=== PATIENT | male | born 1980 | race Caucasian/White ===

== ENCOUNTER 2018-10-30 00:27 | Emergency (ER) | payer OTHER ==
[2018-10-30] MEDS ORDERED: Lidocaine 1% w/Epinephrine 1:100K 20 ML VIAL ONE (00:40)
[2018-10-30] MEDS ORDERED: Ondansetron ODT 4 MG TAB ONE (00:46)
[2018-10-30 01:26] LABS: #Eosinphils 0.2 thou/uL (0.0-0.7); #Monocytes 0.4 thou/uL (0.11-0.59); #Neutrophils 5.1 thou/uL (1.40-6.50); %Basophils 0.4 % (0.0-1.0); %Eosinophils 2.1 % (0.0-10.0); %Lymphocytes 26.2 % (21.0-51.0); %Neutrophils 66.4 % (42.0-75.0); Mean Corpuscular HGB CONC 34.5 g/dL (32.0-36.0); Mean Corpuscular Hemoglobin 32.2 pg (27.0-31.0); Mean Corpuscular Volume 93.5 fL (78.0-98.0); Mean Platelet Volume 6.3 fL (7.4-10.4); Platelet Count 346 thou/uL (130-400); RBC Distribution Width 10.9 % (11.5-14.5); Red Blood Cell (RBC) Count 5.27 mill/uL (4.70-6.10); White Blood Cell (WBC) Count 7.6 thou/uL (4.8-10.8)
[2018-10-30 01:41] LABS: Prothrombin Time 13.4 SEC (12.0-14.7)
[2018-10-30 01:42] LABS: PTT 22.6 SEC (22.9-36.1)
[2018-10-30 01:48] LABS: Acetaminophen Less than 6.0 mcg/mL (10.0-30.0); Alcohol Less than 10 mg/dL (Less than 10); Salicylate Less than 8.0 mg/dL (15.0-30.0)
[2018-10-30 01:57] LABS: ALT (SGPT) 17 U/L (8-55); AST (SGOT) 23 U/L (5-34); Albumin 4.2 g/dL (3.5-5.0); Alkaline Phosphatase 66 U/L (40-150); Anion Gap 18 mmol/L (10-20); BUN (Urea Nitrogen) 12 mg/dL (8.9-20.6); Bilirubin, Total 0.4 mg/dL (0.2-1.2); Calc. Creatinine Clearance 0 mL/min (70-130); Calcium 9.7 mg/dL (7.8-10.44); Carbon Dioxide 22 mmol/L (22-29); Chloride 103 mmol/L (98-107); Estimated GFR-MDRD 75; Globulin 2.8 g/dL (2.4-3.5); Glucose 149 mg/dL (70-105); Lipase 44 U/L (8-78); Potassium 3.8 mmol/L (3.5-5.1); Sodium 139 mmol/L (136-145)
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
--- NOTE | 2018-10-30 07:51 | RAD ---
FINAL REPORT THORACIC SPINE RADIOGRAPHS 3 VIEWS: COMPARISON: None available. FINDINGS: There is no fracture or dislocation of the thoracic spine identified. Vertebral body heights are joel ntained. IMPRESSION: No acute osseous abnormality of the thoracic spine evident. POS: [facility]
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
== END 2018-10-30 03:47 | disposition home or self-care (01) ==
LOC: ERS 00:27
DX: S01.01XA Laceration without foreign body of scalp, initial encounter (principal); S61.213A Laceration without foreign body of left middle finger without damage to nail, initial encounter; F41.9 Anxiety disorder, unspecified; F31.9 Bipolar disorder, unspecified; F43.10 Post-traumatic stress disorder, unspecified; Y00.XXXA Assault by blunt object, initial encounter
CPT/HCPCS: 12001; 36415; 70450; 70486; 72072; 72125; 80053; 80307; 83690; 85025; 85610; 85730; J2001; Q0162

== ENCOUNTER 2018-11-29 14:47 | Emergency (ER) | payer OTHER ==
[2018-11-29] MEDS ORDERED: Lidocaine 4% Cream 5 GM TUBE w/ Tegaderm ONE (16:07)
[2018-11-29] MEDS ORDERED: Acetaminophen 325 MG TAB ONE (17:05)
== END 2018-11-29 17:07 | disposition home health service (06) ==
LOC: ERS 14:47
DX: S01.01XD Laceration without foreign body of scalp, subsequent encounter (principal); F41.9 Anxiety disorder, unspecified; F31.9 Bipolar disorder, unspecified; F43.10 Post-traumatic stress disorder, unspecified